=== PATIENT | male | born 1975 | race Caucasian/White ===

== ENCOUNTER 2024-07-11 09:59 | Outpatient (AMB) | payer OTHER, SELFPAY ==
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
[2024-07-11 09:59] VITALS: BP 136/88; PULSE 76; RESP 12; O2SAT 98; BMI 21.2
== END 2024-07-11 10:50 | disposition home or self-care (01) ==
LOC: HO.HMCFM 09:59
PROVIDERS: PCP Internal Medicine; Visit Provider Internal Medicine
DX: E89.0 Postprocedural hypothyroidism (principal); I10 Essential (primary) hypertension; B36.0 Pityriasis versicolor

== ENCOUNTER → 2024-07-11 09:59 | Outpatient (BNVA) | payer OTHER, SELFPAY | PROVIDERS: PCP Internal Medicine; Visit Provider Internal Medicine | DX: E89.0 Postprocedural hypothyroidism (principal); I10 Essential (primary) hypertension; B36.0 Pityriasis versicolor; E78.00 Pure hypercholesterolemia, unspecified; J45.909 Unspecified asthma, uncomplicated; Z79.899 Other long term (current) drug therapy | CPT/HCPCS: 96127; 96160; 99212 ==

== ENCOUNTER 2024-07-11 10:58 | Outpatient (REF) | payer OTHER, SELFPAY ==
[2024-07-11 15:16] LABS: MANUAL DIFF FLAG NO
[2024-07-11 15:26] LABS: Basophils Absolute Auto 0.1 X10*3/uL (0.0-0.2); Basophils Percent Auto 1.3 % (0-2); Eosinophils Absolute Auto 0.7 X10*3/uL (0.0-0.4); Eosinophils Percent Auto 10.9 % (0-4); Hematocrit 45.3 % (42.0-52.0); Hemoglobin 15.3 g/dl (14.0-18.0); Imm Gran Abs Auto 0.01 X10*3/uL (0.00-0.03); Imm Gran Pct Auto 0.2 % (0.0-0.4); Lymphocytes Absolute Auto 2.4 X10*3/uL (1.2-4.9); Lymphocytes Percent Auto 37.2 % (20-40); Mean Corpuscular HGB Conc 33.8 g/dl (31.0-36.0); Mean Corpuscular Hemoglobin 30.4 pg (27.0-33.0); Mean Corpuscular Volume 90.1 fL (80.0-98.0); Mean Platelet Volume 10.1 fL (9.4-12.4); Monocytes Absolute Auto 0.5 X10*3/uL (0.1-1.2); Monocytes Percent Auto 7.6 % (2-11); Neutrophils Absolute Auto 2.7 x10*3/uL (2.0-8.3); Neutrophils Percent Auto 42.8 % (45-73); Platelet Count 282 X10*3/uL (160-400); Red Blood Count 5.03 X10*6/uL (4.60-5.80); Red Cell Distribution Width 12.4 % (11.0-16.0); White Blood Count 6.3 X10*3/uL (4.8-10.8)
[2024-07-11 16:13] LABS: Alanine Aminotransferase 21 U/L (0-40); Albumin Level 4.8 g/dL (3.5-5.0); Alkaline Phosphatase 63 U/L (39-117); Anion Gap 14 (12-20); Aspartate Amino Transferase 19 U/L (5-37); Bilirubin Total 0.5 mg/dL (0.0-1.0); Blood Urea Nitrogen 16 mg/dL (9-16); Calcium 10.1 mg/dL (8.4-10.2); Carbon Dioxide 29 mmol/L (22-29); Chloride 105 mmol/L (96-108); Cholesterol 297 mg/dL (<200); Estimated Glomerular Filt Rate > 60; Glucose Random 102 mg/dL (60-115); HDL Cholesterol 38 mg/dL (>40); LDL Cholesterol Calculated 228 mg/dL (<100); Potassium 4.6 mmol/L (3.3-5.1); Sodium 143 mmol/L (135-145); TSH reflex Free T4 1.82 uIU/mL (0.32-4.0); Total Protein 7.7 g/dL (6.5-8.0); Triglycerides 156 mg/dL (<150)
[2024-07-16 19:09] LABS: Testosterone, Free 65.7 pg/mL (35.0-155.0); Testosterone, Total 494 ng/dL (250-1100)
== END 2024-07-11 10:59 | disposition home or self-care (01) ==
LOC: HO.WFDLDS 10:58
PROVIDERS: Visit Provider Internal Medicine
DX: I10 Essential (primary) hypertension (principal); E78.00 Pure hypercholesterolemia, unspecified; E03.9 Hypothyroidism, unspecified
CPT/HCPCS: 36415; 80053; 80061; 84402; 84403; 84443; 85025

== ENCOUNTER 2024-10-26 10:37 | Outpatient (REF) | payer OTHER, SELFPAY ==
[2024-10-31 21:52] LABS: Testosterone, Free 312.5 pg/mL (35.0-155.0); Testosterone, Total 1313 ng/dL (250-1100)
== END 2024-10-26 10:38 | disposition home or self-care (01) ==
LOC: HO.HMGCLDS 10:37
PROVIDERS: PCP Internal Medicine; Visit Provider Internal Medicine
DX: N52.9 Male erectile dysfunction, unspecified (principal); E78.00 Pure hypercholesterolemia, unspecified
CPT/HCPCS: 36415; 84402; 84403

== ENCOUNTER 2024-10-27 09:37 | Outpatient (REF) | payer OTHER, SELFPAY ==
[2024-10-27 13:53] LABS: Cholesterol 268 mg/dL (<200); HDL Cholesterol 34 mg/dL (>40); LDL Cholesterol Calculated 209 mg/dL (<100); Triglycerides 129 mg/dL (<150)
== END 2024-10-27 09:38 | disposition home or self-care (01) ==
LOC: HO.HMGCLDS 09:37
PROVIDERS: PCP Internal Medicine; Visit Provider Internal Medicine
DX: N52.9 Male erectile dysfunction, unspecified (principal); E78.00 Pure hypercholesterolemia, unspecified
CPT/HCPCS: 36415; 80061

== ENCOUNTER 2025-01-24 | Outpatient (REF) | payer OTHER, SELFPAY ==
--- OUTSIDE RECORDS SUMMARY | 2025-04-13 18:10 | XMS_ITS | Encounter Summary ---
Author Organization [facility] Address [address] [place] [address] Care Team Providers Care Plunger Scoop Operator Name Role Phone [facility], Pcp Primary Care Provider Traci Rhoades MD Primary Care Provider Unavail Cody Kirk Primary Care Provider [phone] [facility], [facility] Primary Care Provider Janet mark Reason for Visit * Reason Onset Date Comments Shoulder Pain 10/07/2016 Encounter Details Date Type Department Care Team Description 10/07/2016 Telephone Adult Medicine [address] [address] Traci Callejas MD Shoulder Pain Social History Tobacco Use Types Packs/Day Years Used Date Smoking Tobacco: Every Day Cigarettes 0.5 4 Alcohol Use Standard Drinks/Week Comments No 0 (1 standard drink = 0.6 oz pur e alcohol) Sex Assigned at Date Recorded Not on file documented as of this encounter Miscellaneous Notes * Telephone Encounter - Padmini Cheema R.N. - 10/07/2016 8:52 AM EST Pt was seen yesterday for knee, shoulder and back pain. He had recently been taking prednisone and was seen by [facility]. Is due for surgery on his knee with knee. States he is miserable with his shoulder locked up and his knee locked up and he is unable to accomplish ADL's or work because he is not able to use his arms or legs. No change in C/S but has noROM in shoulders or knee, asking for a referral to [facility] for his shoulder . * Telephone Encounter - Araceli Carpenter - 10/07/2016 8:38 AM EST Symptoms patient is presenting: PATIENT WAS SEEN YESTERDAY BY DR SEVERINO FOR KNEE PAIN AND TODAY HIS BOTH SHOULDER ARE LOCK AND KNEE IS LOCK. If pain or injury related was it due to an accident at work or from a motor vehicle accident? NO If yes, gather 3rd libertarian insurance information Date of accident/Injury: How long has patient had these symptoms?: TODAY PCP: Pcp Community Payor: [email or web address] / Plan: [facility] $10/$18 / Product Type: HMO [id number] documented in this encounter Plan of Treatment Not on file documented as of this encounter Visit Diagnoses Not on filedocumented in this encounter Care Teams Plunger Scoop Operator Relationship Specialty Start Date End Date Community, Pcp PCP - General Internal Medicine 09/02/16 12/03/16 Traci Callejas MD PCP - General Internal Medicine 12/04/16 04/30/22 Cody Valenzuela [address] [place] [id number] PCP - General Internal Medicine 05/01/22 03/16/24 Community, Pcp PCP - General Internal Medicine 03/17/24 documented as of this encounter
== END 2025-01-24 00:01 | disposition home or self-care (01) ==
LOC: CF
PROVIDERS: Visit Provider Internal Medicine
DX: Z00.00 Encounter for general adult medical examination without abnormal findings (principal); I10 Essential (primary) hypertension; E78.00 Pure hypercholesterolemia, unspecified; E89.0 Postprocedural hypothyroidism; Z79.899 Other long term (current) drug therapy
CPT/HCPCS: 99396

== ENCOUNTER 2025-01-24 11:24 | Outpatient (AMB) | payer OTHER, SELFPAY ==
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
[2025-01-24 11:43] VITALS: BP 130/100; PULSE 84; RESP 14; O2SAT 96; BMI 29.0
[2025-01-24 11:50] VITALS: BP 124/90
--- OUTSIDE RECORDS SUMMARY | 2025-01-24 13:57 | XMS_ITS | Clinical Summary ---
Author Organization [employer] Address [address] [place] [address] [address] [place] [address] Care Team Providers Care Bobbin Collector Name Role Phone Unavailable Primary Care Provider Unavailabl e Allergies Active Allergy Reactions Criticality Noted Date Comments Shellfish-Derived Products Swelling 8 Medications No known medications Social History Tobacco Use Types Packs/Day Years Used Date Smoking Tobacco: Former Cigarettes Smokeless Tobacco: Former Tobacco Cessation:Counseling Given: Not Answered Alcohol Use Standard Drinks/Week Comments Not Currently 0 (1 standard drink = 0.6 oz pur e alcohol) Sex and Gender Information Value Date Recorded Sex Assigned at Male 08/18/2022 10:22 AM EDT Legal Sex Male 10:22 AM EDT Gender Identity Male 01/01/2023 1:28 PM EDT Sexual Orientation Choose not to disclose 2022 1:28 PM EDT Plan of Treatment Health Maintenance Due Date Last Done Comments CT Colonography 1977 Colonoscopy 1977 Colorectal Cancer Screening 1977 Depression Screening 1977 FIT DNA/Cologuard 1977 FIT 1977 FOBT 1977 HIV Screening 1977 Lipid Panel 1977 SDOH Screening 1977 Sigmoidoscopy 1977 Alcohol/Substance Use Screening 1989 Family Planning (PISQ) 01/31/1992 Hepatitis C Screening 1995 Hepatitis B Vaccines (1 of 3 - 19+ 3-dose series) 01/31/1996 DTaP/Tdap/Td Vaccines (1 - Tdap) 03/01/2013 02/28/2013 Pneumococcal Vaccine: Pediatrics (0 to 5 Years) and At-Risk Patients (6 to 49) Years) (2 of 2 - PCV) 05/19/2014 05/19/2013 Dental X-Ray: Full Mouth 09/21/2016 09/20/2013, 1104/2012 Dental Prophylaxis 03/08/2018 09/07/2017, 0 03/03/2017, 02/07/2015, Additional history exists Dental Oral Exam 08/26/2019 02/22/2019, , 03/03/2017, Additional history exists Tobacco Screening 05/08/2024 05/08/2023 Dental X-Ray: Bitewings 05/09/2024 05/08/20 23, 02/22/2019, 03/03/2017, Additional history exists COVID-19 Vaccine ( - 2023- season) 2024 Influenza Vaccine (#1) 2024 Zoster Vaccines (1 of 2) 2027 RSV Patients and Patients Aged 60 years or older (1 - 1-dose 75+ series) 01/31/2052 HIB Vaccines Aged Out No longer eligi ble based on patient's age to complete this topic HPV Vaccines Aged Out No longer eligi ble based on patient's age to complete this topic Hepatitis A Vaccines Aged Out No long er eligible based on patient's age to complete this topic IPV Vaccines Aged Out No longer eligi ble based on patient's age to complete this topic Meningococcal Vaccine Aged Out No michelle indy eligible based on patient's age to complete this topic RSV under 20 months Aged Out No longe r eligible based on patient's age to complete this topic Rotavirus Vaccines Aged Out No longer eligible based on patient's age to complete this topic Procedures Procedure Name Priority Date/Time Associated Diagnosis Comments BITEWING - SINGLE RADIOGRAPHIC IMAGE Routine 05/08/2023 11:30 AM EDT Dental abscess PERIODIC ORAL EVALUATION - ESTABLISHED PATIENT Routine 02/22/2019 12:00 AM EDT PROPHYLAXIS - ADULT Routine 09/07/2017 1 2:00 AM EST PANORAMIC RADIOGRAPHIC IMAGE Routine 09/20/2013 12:00 AM EST from Last 3 Months or Most Recently Relevant to Health Maintenance Insurance DENTAL-[facility] MEDICAID STAND ADULT DENTAL - [place] PARTIAL (MEDICAID) [place] STAND ADULT * Guarantor: Jeremy, Joe Account Type Relation to Patient Date of Phone Billing Address Personal/Family Self [address] [place]
--- OUTSIDE RECORDS SUMMARY | 2025-01-24 13:57 | XMS_ITS | Encounter Summary ---
Author Organization [facility] Address [address] [place] [address] Phone Care Team Providers Care Carbon Capture Power Plant Manager Name Role Phone Lore Rolle Primary Care Provider [phone] Encounter Details Date Type Department Care Team (Late st Contact Info) Description 06/02/2022 Procedure Pass [facility], Ct Scan - [address] [address] Social History Tobacco Use Types Packs/Day Years Used Date Smoking Tobacco: Never Assessed Sex and Gender Information Value Date Recorded Sex Assigned at Male 06/02/2022 3:28 PM EDT Gender Identity Male 06/02/2022 3:28 PM EDT Sexual Orientation Not on file documented as of this encounter Plan of Treatment Not on file documented as of this encounter Visit Diagnoses Not on filedocumented in this encounter Care Teams Carbon Capture Power Plant Manager Relationship Specialty Start Date End Date Lore Rolle PA PCP - General 06/02/22 documented as of this encounter Additional Source Comments The information contained in this document represents components of the legal health record. It is not the complete legal health record.[facility]
--- OUTSIDE RECORDS SUMMARY | 2025-01-24 13:57 | XMS_ITS | Clinical Summary ---
Author Organization [facility] Address [address] [place] [address] Phone Care Team Providers Care Electronics Technician Apprentice Name Role Phone Lore Rolle Primary Care Provider [phone]- [phone] Allergies Active Allergy Reactions Criticality Noted Date Comments Shellfish Containing Products Swelling 2007 Medications Medication Sig Dispensed Refills Start Date End Date Status levETIRAcetam (KEPPRA) 500 MG tablet Take 1 tablet (500 mg total) by mouth 2 (two) times a day. 14 tablet 06/03/2022 Active tranexamic acid (LYSTEDA) 650 mg Tab Take 1 tablet (650 mg total) by mouth 3 (three) times a day. 63 tablet 06/03/2022 Active Social History Tobacco Use Types Packs/Day Years Used Date Smoking Tobacco: Never Assessed Education Answer Date Recorded Are you interested in more education? Not on dorita e 02/13/2023 Are you concerned about learning? Not on file 02/13/2023 No 02/13/2023 No 02/13/2023 Digital Access Answer Date Recorded No 03/16/2023 No 03/16/2023 No 03/16/2023 Reliable internet access at home? Not on file 03/16/2023 Device with a working camera? Not on file Sex and Gender Information Value Date Recorded Sex Assigned at Male 06/02/2022 3:28 PM EDT Gender Identity Male 06/02/2022 3:28 PM EDT Sexual Orientation Not on file Last Filed Vital Signs Vital Sign Reading Time Taken Comments Blood Pressure 131/96 06/03/2022 1:30 AM EDT Pulse 85 06/03/2022 1:30 AM EDT Temperature 36.6 ??C (97.9 ??F) 06/03/2022 1:30 AM ED T Respiratory Rate 18 06/02/2022 3:27 PM EDT Oxygen Saturation 99% 06/03/2022 1:30 AM EDT Inhaled Oxygen Concentration - - Weight - - Height - - Body Mass Index - - Plan of Treatment Not on file Medical Devices Not on file Care Teams Electronics Technician Apprentice Relationship Specialty Start Date End Date Lore Rolle PA PCP - General 06/02/22 Additional Source Comments The information contained in this document represents components of the legal health record. It is not the complete legal health record.[facility]
--- OUTSIDE RECORDS SUMMARY | 2025-01-24 13:57 | XMS_ITS | Data Portability ---
Author Organization [facility], [facility] Address [address] [place] [address] Assessment No assessment recorded. Plan of Treatment Reminders Order Date Submit Date Provider Last Modified By Organization Details Last Modified Time Details Appointments None recorded. Lab None recorded. Referral None recorded. Procedures None recorded. Surgeries None recorded. Imaging XR, elbow, 3 or more view - room 112 new pt 2023 024 [email or web address] [facility], [address] [employer], [address], [place], [address], 4 11:16:43 Medication Orders meloxicam 15 mg tablet 2023 024 [email or web address] [id number], [address] [place], [address], 4 14:04:33 Patient TargetsNo targets recorded. Patient InstructionsNo instructions recorded. Reason for Referral None Reported. Procedures Surgical History Date Name Laterality Status Provider Name and Address Organization Details Recorded Time 01/27/20 24 Lateral Epicondylitis Celestone 1cc Injection, L/R completed Marito Garcia PA-C [address] [employer] [employer] [address], [place], [address], [facility] 01/27/2024 13:37:17 Imaging Results None recorded. Procedure Notes None recorded. Medical Equipment None Reported. Allergies Allergen ID Allergen Name Allergen Category Reaction Reaction Severity Criticality Documentation Date Start Date Code Code System Note Provider Name and Address Organization Details Recorded Time 505150 shellfish derived food,medi cation Not available Not available Not available 01/27/2024 [id number] UNK CHRISTINA scruggs [place] - [facility] 13:07:48 Medications Name Sig Start Date Stop Date Status Note LastModified by Organization Details LastModified Time losartan 50 mg tablet TAKE 1 TABLET BY MOUTH EVERY DAY active Not Available Not Available No t Available amoxicillin 500 mg capsule TAKE 1 CAP BY MOUTH EVERY 6 HOURS UNTIL FINISHED 01/26 completed Not Available Not Available Not Available levothyroxi ne 175 mcg tablet TAKE 1 TABLET BY MOUTH EVERY DAY active Not Available Not Available No t Available albuterol sulfate 2.5 mg/3 mL (0.083 %) solution for nebulizatio n INHALE 2.5 MG (3 ML) INHALED EVERY 4 TO 6 HOURS NEEDED FOR SHORTNESS OF BREATH OR WHEEZING active Not Available Not Available No t Available ibuprofen 800 mg tablet TAKE 1 TABLET BY MOUTH EVERY 8 HOURS NEEDED FOR PAIN 01/26 completed Not Available Not Available Not Available fluconazole 150 mg tablet TAKE 1 TABLET BY MOUTH EVERY DAY active Not Available Not Available No t Available meloxicam 15 mg tablet Take 1 tablet every day by oral route after meal(s). active Not Available Not Available No t Available prednisone 20 mg tablet TAKE 2 TABS BY MOUTH DAILY FOR 3 DAYS active Not Available Not Available No t Available simvastatin 10 mg tablet TAKE 1 TABLET BY MOUTH EVERY EVENING active Not Available Not Available No t Available amitriptyli ne 50 mg tablet TAKE 1 TABLET BY MOUTH EVERYDAY AT BEDTIME active Not Available Not Available No t Available levothyroxi ne 150 mcg tablet TAKE 1 TABLET BY MOUTH EVERY DAY 01/26 completed Not Available Not Available Not Available diclofenac sodium 50 mg tablet,yomaira yed release TAKE 1 TABLET BY MOUTH 3 TIMES A DAY 01/26 completed Not Available Not Available Not Available fluticasone propionate 110 mcg/actuati on HFA aerosol inhaler INHALE 1 PUFF BY MOUTH TWICE A DAY 01/26 completed Not Available Not Available Not Available amoxicillin 500 mg-maude hendrickson clavulanate 125 mg tablet TAKE 1 TABLET BY MOUTH THREE TIMES A DAY 01/26 completed Not Available Not Available Not Available Ventolin HFA 90 mcg/actuati on aerosol inhaler INHALE 2 PUFF BY MOUTH EVERY 4 HOURS NEEDED FOR SHORTNESS OF BREATH OR WHEEZING active Not Available Not Available No t Available oxycodone 5 mg tablet TAKE 1 TABLET BY MOUTH EVERY 4 HOURS NEEDED FOR PAIN active Not Available Not Available No t Available doxycycline hyclate 100 mg tablet,yomaira yed release TAKE 1 TABLET BY MOUTH TWICE A DAY FOR 14 DAYS 01/26 completed Not Available Not Available Not Available calcium 315 mg (as citrate)-vi tamin D3 6.25 mcg (250 unit) tablet TAKE 2 TABS BY MOUTH THREE TIMES DAILY 01/26 completed Not Available Not Available Not Available ProAir RespiClick 90 mcg/actuati on breath activated INHALE 2 PUFFS EVERY 4 HOURS NEEDED FOR SHORTNESS OF BREATH OR FOR WHEEZE active Not Available Not Available No t Available Qvar RediHaler 80 mcg/actuati on HFA breath activated aerosol INHALE 1 PUFF BY MOUTH TWICE A DAY active Not Available Not Available No t Available Vitals Date Recorded Body height Body mass index (BMI) Body weight Provider Name and Address Organization Details Last Updated DateTime 01/27/2024 210.82 cm 21.9 kg/m2 01388.36 g CHRISTINA NOGUEIRA [place] - [facility] 01/27/2024 13:07:42 Social History None recorded. Functional Status None recorded. Mental Status None recorded. Family History Nothing Reported. Medical History No medical history recorded. Past Encounters Encounter ID Performer Location Encounter Start Date Encounter Closed Date Diagnosis/Indication Diagnosis SNOMED-CT Code Diagnosis ICD10 Code Diagnosis Note [id number] [facility] [address] [place] [address] 01/27/2024 12:53:10 02/17/2024 11:16:43 Pain of right elbow joint 6938012302 1426156 M25.521 Lateral epicondylitis 20 8002122 M77.11 Health Concerns Section Related Observation LastModified by Organization Detai ls LastModified Time None Recorded Concern Status LastModified by Organization Details LastModified Time None Recorded Advance Directives Directive None Recorded Payers Encounter Date Sequence Insurance Name Policy Number Policy Son Covered Member ID Son Member ID Guarantor Name 01/27/[address] [place] [address] HEALTHY COUNT INCLUDES THE [facility] (MEDICAID HMO) [id number] Joe Luna [id number] Joe Luna Notes Date Note Type Note Provider Name and Address Organization Details Recorded Time 01/27/2024 text/html I am seeing the patient today under the supervision of dr Mi who was available but who did not see the patient. DX: Right Lateral epicondylitis HPI:46. She will mailing for the consultation. He sustained a fall in October. He slipped and fell onto his right elbow. He developed pain and swelling. He has pain with lifting, pulling and pushing. No bracing. No anti-inflammatories. Past family, medical, social history and review of systems has been reviewed, updated and is located in the patient? s chart. Examination: Alert and oriented ? ? 3 . No acute distress. Nonantalgic gait.Right Elbow reveals no soft tissue swelling. The patient is tender over the lateral epicondyle. Lateral elbow pain with wrist extension, resisted wrist extension and resisted forearm supination. No Tenderness medially or over the olecranon process. Left elbow ROM full. Full pronation/supination. No evidence of varus/valgus instability. No radiocapitellar crepitus. No medial or lateral epicondylar tenderness. No evidence for effusion, no evidence of mechanical symptoms or locking. Intact median, radial and ulnar nerve both motor and sensory function. Negative Tinel at the level of the elbow. X-rays ordered, obtained and reviewed at [facility] Impression/Plan: Findings and situation were discussed with the patient. Treatment options were discussed. The patient would like to proceed with a cortisone injection. Under aseptic technique, 6 mg of Celestone, and 1 cc of 1% plain Lidocaine were injected into the right lateral epicondylar region. The patient tolerated the procedure well. Patient was provided with a handout that instruction on home stretching exercises. The patient was provided with a Velcro wrist splint to minimize the use the forearm extensors. . Perscribed meloxicam 15 mg daily prn. Patient follow-up in 6 weeks for reexamination. The patient has weakness and instability of their extremity which requires stabalization for this semi-rigid/rigid orthosis to improve their funciton. Verbal and written instructions for the use and application of this item were given. Patient was instructed that should the brace result in increased pain, decreased sensation, increased swelling or an overall worsening of their medical condition, to please contact our office immediately.Velcro wrist splint-tennis elbow Marito Garcia PA-C [address], [place], [address], [facility] - [facility] 01/27/2024 13:37:34
== END 2025-01-24 12:25 | disposition home or self-care (01) ==
PROVIDERS: PCP Internal Medicine; Visit Provider Internal Medicine
DX: Z00.00 Encounter for general adult medical examination without abnormal findings (principal); I10 Essential (primary) hypertension; E78.00 Pure hypercholesterolemia, unspecified

== ENCOUNTER 2025-01-31 10:00 | Outpatient (REF) | payer OTHER, SELFPAY ==
--- OUTSIDE RECORDS SUMMARY | 2025-01-31 11:38 | XMS_ITS | Clinical Summary ---
Author Organization [facility] Address [address] [place] [address] Phone Care Team Providers Care Clinical Nurse Educator Name Role Phone Lore Rolle Primary Care Provider [phone]- [phone] Allergies Active Allergy Reactions Criticality Noted Date [...] Medical Devices Not on file Care Teams Clinical Nurse Educator Relationship Specialty Start Date End Date Lore Rolle PA PCP - General 06/02/22 Additional Source Comments The information contained in this document represents components of the legal health record. It is not the complete legal health record.[facility]
--- OUTSIDE RECORDS SUMMARY | 2025-01-31 11:38 | XMS_ITS | Clinical Summary ---
Author Organization [employer] Address [address] [place] [address] [address] [place] [address] Care Team Providers Care Account Manager Relief Name Role Phone Unavailable Primary Care Provider [...] Most Recently Relevant to Health Maintenance Insurance [facility] MEDICAID STAND ADULT DENTAL - HSN PARTIAL (MEDICAID) [place]ICAID STAND ADULT * Guarantor: Jeremy, Joe Account Type Relation to Patient Date of Phone Billing Address Personal/Family Self [address] [place]
--- OUTSIDE RECORDS SUMMARY | 2025-01-31 11:38 | XMS_ITS | Encounter Summary ---
Author Organization [facility] Address [address] [place] [address] Phone Care Team Providers Care Pattern Finisher Name Role Phone Lore Rolle Primary Care Provider [phone] Encounter Details Date Type Department Care Team (Late st Contact Info) Description 06/02/2022 Procedure Pass [facility], Ct Scan - [address] [address] Social History Tobacco Use Types Packs/Day Years [...] on filedocumented in this encounter Care Teams Pattern Finisher Relationship Specialty Start Date End Date Lore Rolle PA PCP - General 06/02/22 documented as of this encounter Additional Source Comments The information contained in this document represents components of the legal health record. It is not the complete legal health record.[facility]
[2025-01-31 13:27] LABS: MANUAL DIFF FLAG NO
[2025-01-31 13:42] LABS: Basophils Absolute Auto 0.1 X10*3/uL (0.0-0.2); Basophils Percent Auto 0.8 % (0-2); Eosinophils Absolute Auto 0.8 X10*3/uL (0.0-0.4); Eosinophils Percent Auto 11.5 % (0-4); Hematocrit 46.7 % (42.0-52.0); Hemoglobin 15.9 g/dl (14.0-18.0); Imm Gran Abs Auto 0.02 X10*3/uL (0.00-0.03); Imm Gran Pct Auto 0.3 % (0.0-0.4); Lymphocytes Absolute Auto 2.3 X10*3/uL (1.2-4.9); Lymphocytes Percent Auto 32.6 % (20-40); Mean Corpuscular Hemoglobin 30.1 pg (27.0-33.0); Mean Corpuscular Volume 88.3 fL (80.0-98.0); Mean Platelet Volume 10.1 fL (9.4-12.4); Monocytes Absolute Auto 0.6 X10*3/uL (0.1-1.2); Monocytes Percent Auto 8.4 % (2-11); Neutrophils Absolute Auto 3.3 x10*3/uL (2.0-8.3); Neutrophils Percent Auto 46.4 % (45-73); Platelet Count 280 X10*3/uL (160-400); Red Blood Count 5.29 X10*6/uL (4.60-5.80); Red Cell Distribution Width 12.9 % (11.0-16.0); White Blood Count 7.1 X10*3/uL (4.8-10.8)
[2025-01-31 14:12] LABS: Alanine Aminotransferase 31 U/L (0-40); Albumin Level 4.5 g/dL (3.5-5.0); Anion Gap 13 (12-20); Aspartate Amino Transferase 56 U/L (5-37); Bilirubin Total 0.5 mg/dL (0.0-1.0); Blood Urea Nitrogen 18 mg/dL (9-16); Calcium 9.6 mg/dL (8.4-10.2); Carbon Dioxide 25 mmol/L (22-29); Chloride 106 mmol/L (96-108); Cholesterol 245 mg/dL (<200); Estimated Glomerular Filt Rate > 60; Glucose Random 80 mg/dL (60-115); HDL Cholesterol 37 mg/dL (>40); LDL Cholesterol Calculated 167 mg/dL (<100); Potassium 4.6 mmol/L (3.3-5.1); Sodium 139 mmol/L (135-145); Total Protein 7.4 g/dL (6.5-8.0); Triglycerides 207 mg/dL (<150)
[2025-01-31 14:25] LABS: TSH reflex Free T4 0.99 uIU/mL (0.32-4.0)
[2025-01-31 17:31] LABS: Alkaline Phosphatase 52 U/L (39-117)
[2025-02-01 04:58] LABS: Lyme Abs Screen <0.90 index
[2025-02-05 12:24] LABS: Testosterone, Free 201 pg/mL (35.0-155.0); Testosterone, Total 1126 ng/dL (250-1100)
== END 2025-01-31 10:01 | disposition home or self-care (01) ==
LOC: HO.HMGCLDS 10:00
PROVIDERS: PCP Internal Medicine; Visit Provider Internal Medicine
DX: Z00.00 Encounter for general adult medical examination without abnormal findings (principal); I10 Essential (primary) hypertension; E78.00 Pure hypercholesterolemia, unspecified; E89.0 Postprocedural hypothyroidism
CPT/HCPCS: 36415; 80053; 80061; 84402; 84403; 84443; 85025; 86617; 86618

== ENCOUNTER 2025-01-31 11:19 | Outpatient (REF) | payer OTHER, SELFPAY ==
--- OUTSIDE RECORDS SUMMARY | 2025-01-31 14:00 | XMS_ITS | Encounter Summary ---
Author Organization [facility] Address [address] [facility] [address] [facility] [place] [address] Care Team Providers Care Crown Ironer Name Role Phone Benedicto Hoskins MD Primary Care Provider Unavailable [facility], Pcp Primary Care Provider Traci Rhoades MD Primary Care Provider Unavail able Cody Valenzuela Primary Care Provider [facility], Pcp Primary Care Provider Janet mark Encounter Details Date Type Department Care Team Description 08/03/2016 Release of Information Medical Records [address] [place] [address] Abstract, Provider Social History Tobacco Use Types Packs/Day Years Used Date Smoking Tobacco: Every Day Cigarettes 0.5 4 Alcohol Use Standard Drinks/Week Comments No 0 (1 standard drink = 0.6 oz pur e alcohol) Sex Assigned at Date Recorded Not on file documented as of this encounter Plan of Treatment Not on file documented as of this encounter Visit Diagnoses Not on filedocumented in this encounter Care Teams Crown Ironer Relationship Specialty Start Date End Date Benedicto Hoskins MD PCP - General Internal Medicine 08/11/13 [facility], Pcp PCP - General Internal Medicine 09/02/16 12/03/16 Traci Callejas MD PCP - General Internal Medicine 12/04/16 04/30/22 Cody Valenzuela [address] [place] [address] PCP - General Internal Medicine 05/01/22 03/16/24 [facility], Pcp PCP - General Internal Medicine 03/17/24 documented as of this encounter
--- OUTSIDE RECORDS SUMMARY | 2025-01-31 14:00 | XMS_ITS | Encounter Summary ---
Author Organization [facility] Address [address] [place] [address] Care Team Providers Care Uke Operator Name Role Phone Traci Callejas MD Primary Care Provider Unavail able Cody Valenzuela Primary Care Provider [phone] Counts Include [address] [facility], Pcp Primary Care Provider Unavailabl e Reason for Visit * Reason Onset Date Comments [employer] Communications Sergeant Feedback 06/22/2018 [facility] Encounter Details Date Type Department Care Team Description 06/22/2018 Telephone Adult Medicine [address] [address] Traci Callejas MD [employer] Sergeant Feedback ([facility] - [facility] ) Social History Tobacco Use Types Packs/Day Years Used Date Smoking Tobacco: Every Day Cigarettes 0.5 4 Smokeless Tobacco: Current Alcohol Use Standard Drinks/Week Comments Yes 0 (1 standard drink = 0.6 oz pur e alcohol) Sex Assigned at Date Recorded Not on file documented as of this encounter Miscellaneous Notes * Telephone Encounter - Isatu Craft - 06/23/2018 10:31 AM EDT images sent to [facility]. * Telephone Encounter - John Horta - 06/22/2018 4:33 PM EDT Please push / upload imaging of knee done on 05/19/18 to pac -[facility] ?? documented in this encounter Plan of Treatment Not on file documented as of this encounter Visit Diagnoses Not on filedocumented in this encounter Care Teams Uke Operator Relationship Specialty Start Date End Date Traci Callejas MD PCP - General Internal Medicine 12/04/16 04/30/22 Cody Valenzuela [address] [place] [address] PCP - General Internal Medicine 05/01/22 03/16/24 Counts Include [address] [facility], [address] [address] PCP - General Internal Medicine 03/17/24 documented as of this encounter
--- OUTSIDE RECORDS SUMMARY | 2025-01-31 14:00 | XMS_ITS | Encounter Summary ---
Author Organization [facility] Address [address] [place] [address] Care Team Providers Care Contact Centre Supervisor Name Role Phone [facility], Pcp Primary Care Provider Traci Rhoades MD Primary Care Provider Unavail Cody Kirk Primary Care Provider [phone] [facility], Pcp Primary Care Provider Janet mark Encounter Details Date Type Department Care Team Description 10/08/2016 Release of Information Medical Records [address] [place] [address] Abstract, Provider Social History Tobacco Use Types [...] on filedocumented in this encounter Care Teams Contact Centre Supervisor Relationship Specialty Start Date End Date [facility], Pcp PCP - General Internal Medicine 09/02/16 12/03/16 Traci Callejas MD PCP - General Internal Medicine 12/04/16 04/30/22 Cody Valenzuela [address] [place], [place] [id number] PCP - General Internal Medicine 05/01/22 03/16/24 [facility], Pcp PCP - General Internal Medicine 03/17/24 documented as of this encounter
--- OUTSIDE RECORDS SUMMARY | 2025-01-31 14:00 | XMS_ITS | Encounter Summary ---
Author Organization [facility] Address [address] [place] [address] Care Team Providers Care Parent Trainer Name Role Phone Traci Callejas MD Primary Care Provider Unavail able Cody Valenzuela Primary Care Provider [phone] [facility], Pcp [facility] Encounter Details Date Type Department Care Team Description 04/30/2022 [place] [address] Traci Callejas MD Social History Tobacco Use Types Packs/Day Years [...] on filedocumented in this encounter Care Teams Parent Trainer Relationship Specialty Start Date End Date Traci Callejas MD PCP - General Internal Medicine 12/04/16 04/30/22 Cody Valenzuela [address] [place] [address] [id number] PCP - General Internal Medicine 05/01/22 03/16/24 [facility], Pcp [address] [place] [address] PCP - General Internal Medicine 03/17/24 documented as of this encounter
--- OUTSIDE RECORDS SUMMARY | 2025-01-31 14:00 | XMS_ITS | Clinical Summary ---
Author Organization [facility] Address [address] [place] [address] Phone Care Team Providers Care Clinical Project Coordinator Name Role Phone Lore Rolle Primary Care Provider [phone] Allergies Active Allergy Reactions Criticality Noted Date [...] Devices Not on file Care Teams Clinical Project Coordinator Relationship Specialty Start Date End Date Lore Rolle PA PCP - General 06/02/22 Additional Source Comments The information contained in this document represents components of the legal health record. It is not the complete legal health record.[facility]
--- OUTSIDE RECORDS SUMMARY | 2025-01-31 14:00 | XMS_ITS | Encounter Summary ---
Author Organization [facility] Address [address] [place] [address] Phone Care Team Providers Care Mens Locker Room Attendant Name Role Phone Lore Rolle Primary Care Provider [phone] Encounter Details Date Type Department Care Team (Late st Contact Info) Description 06/02/2022 Procedure Pass [facility], Ct Scan - [address] [address] Social History Tobacco Use Types Packs/Day Years [...] on filedocumented in this encounter Care Teams Mens Locker Room Attendant Relationship Specialty Start Date End Date Lore Rolle PA PCP - General 06/02/22 documented as of this encounter Additional Source Comments The information contained in this document represents components of the legal health record. It is not the complete legal health record.[facility]
--- OUTSIDE RECORDS SUMMARY | 2025-01-31 14:00 | XMS_ITS | Encounter Summary ---
Author Organization [facility] Address [address] [place] [address] Care Team Providers Care Telecom Assistant Name Role Phone Traci Callejas MD Primary Care Provider Unavail Cody Kirk Primary Care Provider [phone] [facility] [place] [facility], Pcp Primary Care Provider [facility] Reason for Visit * Reason Comments E-prescribe Rx Request Encounter Details Date Type Department Care Team Description 07/12/2018 Refill Adult Medicine [address] [address] Traci Callejas MD E-prescribe Rx Request Social History Tobacco Use Types Packs/Day Years Used Date Smoking Tobacco: Every Day Cigarettes 0.5 4 Smokeless Tobacco: Current Alcohol Use Standard Drinks/Week Comments Yes 0 (1 standard drink = 0.6 oz pur e alcohol) Sex Assigned at Date Recorded Not on file documented as of this encounter Miscellaneous Notes * Telephone Encounter - Anca Dorethakecia - 07/13/2018 8:37 AM EDT Patient would like script to be: E-PRESCRIBED/FAXED TO PHARMACY WHEN WAS THE PATIENT'S LAST APPOINTMENT IN ADULT MEDICINE? 05/19/18 WHEN WAS THE LAST TIME THE PATIENT SAW THEIR PCP? Same as above Does patient have an upcoming appointment? Yes 11/25/18 (THE MEDICATION REQUESTED IS ON THE MED LIST ABOVE) All of the medications requested were on the CURRENT MEDS list Did you check the Pharmacy information above?: YES Patient wants: 30 -day supply Is this a mail order prescription request ? NO If the refill is from a FAXED refill request what is the RX # listed on the fax? N/A Patients current insurance carrier is: No billing information found for this encounter. documented in this encounter Plan of Treatment Not on file documented as of this encounter Visit Diagnoses Not on filedocumented in this encounter Care Teams Telecom Assistant Relationship Specialty Start Date End Date Traci Callejas MD PCP - General Internal Medicine 12/04/16 04/30/22 Cody Valenzuela [address] [place] [address] PCP - General Internal Medicine 05/01/22 03/16/24 [facility] [address] [place] [address] PCP - General Internal Medicine 03/17/24 documented as of this encounter
--- OUTSIDE RECORDS SUMMARY | 2025-01-31 14:00 | XMS_ITS | Clinical Summary ---
Author Organization [employer] Address [address] [place] [address] [address] [place] [address] Care Team Providers Care Blood Bank Technologist Name Role Phone Unavailable Primary Care Provider [...] Most Recently Relevant to Health Maintenance Insurance [facility] MEDICAID STAND ADULT DENTAL - HSN PARTIAL (MEDICAID) [place] STAND ADULT * Guarantor: Jeremy, Joe Account Type Relation to Patient Date of Phone Billing Address Personal/Family Self [address] [place]
--- OUTSIDE RECORDS SUMMARY | 2025-01-31 14:00 | XMS_ITS | Encounter Summary ---
Author Organization [facility] Address [address] [place] [address] Care Team Providers Care Insurance Adviser Name Role Phone [facility], Pcp Primary Care Provider Traci Rhoades MD Primary Care Provider Cody Powell Primary Care Provider [phone] [facility] Primary Care Provider Janet mark Reason for Visit * Reason Onset Date Comments REFERRAL 10/07/2016 Encounter Details Date Type Department Care Team Description 10/07/2016 Telephone Physiatry - [address] [address] Neel Islas PA-C REFERRAL Social History Tobacco Use Types Packs/Day Years Used Date Smoking Tobacco: Every Day Cigarettes 0.5 4 Alcohol Use Standard Drinks/Week Comments No 0 (1 standard drink = 0.6 oz pur e alcohol) Sex Assigned at Date Recorded Not on file documented as of this encounter Miscellaneous Notes * Telephone Encounter - Bimal Zayas - 10/07/2016 10:34 AM EST Patient was referred to Physiatry for shoulder pain Spoke to patient and he declined appointment. Patient stated the appointment was too far away. Patient will not be put back on referrals report. Patient would like to be referred externally. Please place appropriate referral. Thank You documented in this encounter Plan of Treatment Not on file documented as of this encounter Visit Diagnoses Not on filedocumented in this encounter Care Teams Insurance Adviser Relationship Specialty Start Date End Date Community, Pcp PCP - General Internal Medicine 09/02/16 12/03/16 Traci Callejas MD PCP - General Internal Medicine 12/04/16 04/30/22 Cody Valenzuela [address] [place] [address] PCP - General Internal Medicine 05/01/22 03/16/24 Community, Pcp PCP - General Internal Medicine 03/17/24 documented as of this encounter
[2025-01-31 14:43] LABS: Amphetamine Screen Urine Not Detected (Not Detect); Barbiturates, Urine Not Detected (Not Detect); Benzodiazepines Screen Urine Not Detected (Not Detect); Buprenorphine Scr Not Detected (Not Detect); Cannabinoid Screen Urine Not Detected (Not Detect); Cocaine Screen Urine Not Detected (Not Detect); Fentanyl, urine Not Detected (Not Detect); Methadone Screen, Urine Not Detected (Not Detect); Opiate Screen Urine Not Detected (Not Detect); Oxycodone Screen Urine Not Detected (Not Detect); Phencyclidine Screen Urine Not Detected (Not Detect)
== END 2025-01-31 11:20 | disposition home or self-care (01) ==
LOC: HO.WFDLDS 11:19
PROVIDERS: Visit Provider Internal Medicine
DX: Z02.83 Encounter for blood-alcohol and blood-drug test (principal)
CPT/HCPCS: 80307

== ENCOUNTER 2025-08-01 11:01 | Outpatient (AMB) | payer MEDICARE, MEDICAID, SELFPAY ==
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
[2025-08-01 11:27] VITALS: BP 110/86; PULSE 76; RESP 14; TEMP 36.6; O2SAT 96; BMI 29.9
--- OUTSIDE RECORDS SUMMARY | 2025-08-01 13:19 | XMS_ITS | Encounter Summary ---
Author Organization [facility] Address [address] [place] [address] [place] [phone] Phone Care Team Providers Care Electronic Heat Seal Operator Name Role Phone Lore Rolle Primary Care Provider [phone] Encounter Details Date Type Department Care Team (Late st Contact Info) Description 06/02/2022 Procedure Pass [facility], Ct Scan - [address] [address] Social History Tobacco Use Types Packs/Day Years Used Date Smoking Tobacco: Never Assessed Sex and Gender Information Value Date Recorded Sex Assigned at Male 06/02/2022 3:28 PM EDT Legal Sex Male 9:26 PM EDT Gender Identity Male 06/02/2022 3:28 PM EDT Sexual Orientation Not on file documented as of this encounter Functional Status * Calculated C-SSRS Risk Score (Lifetime/Recent) Answer Date of Assessment Author No Risk Indicated 06/02/2022 3:28 PM EDT Africa Bravo RN * [place] Suicide Severity Rating Scale (Screener/Recent Self-Report) Question Answer Date of Assessment Author 1. Wish to be (Past 1 Month) No 022 3:28 PM EDT Africa Bravo RN 2. Non-Specific Active Suici mick Thoughts (Past 1 Month) No 06/02/2022 3:28 PM EDT Jonn Bravo RN 6. Suicidal Behavior (Lifetime) No 3:28 PM EDT Africa Bravo RN documented as of this encounter Plan of Treatment Not on file documented as of this encounter Visit Diagnoses Not on filedocumented in this encounter Care Teams Electronic Heat Seal Operator Relationship Specialty Start Date End Date Lore Rolle PA [address] [place] [address] PCP - General 06/02/22 documented as of this encounter Additional Source Comments The information contained in this document represents components of the legal health record. It is not the complete legal health record.[facility]
--- OUTSIDE RECORDS SUMMARY | 2025-08-01 13:19 | XMS_ITS | Clinical Summary ---
Author Organization [facility] Address [address] [place] [address] [place] [address] Phone Care Team Providers Care Paperback Machine Operator Name Role Phone Lore Rolle Primary Care Provider [phone] Allergies Active Allergy Reactions Criticality Noted Date Comments Shellfish Containing Products Swelling 2007 Medications levETIRAcetam (KEPPRA) 500 MG tablet Take 1 [...] 85 06/03/2022 1:30 AM EDT Temperature 36.6 C (97.9 F) 06/03/2022 1:30 AM EDT Respiratory Rate 18 06/02/2022 3:27 PM EDT Oxygen Saturation 99% 06/03/2022 1:30 AM EDT Inhaled Oxygen Concentration - - Weight - - Height - - Body Mass Index - - Plan of Treatment Not on file Medical Devices Not on file Insurance [facility] [employer] [facility] [employer] Care Teams Paperback Machine Operator Relationship Specialty Start Date End Date Lore Rolle PA [address] [place] [id number] PCP - General 06/02/22 Additional Source Comments The information contained in this document represents components of the legal health record. It is not the complete legal health record.[facility]
--- OUTSIDE RECORDS SUMMARY | 2025-08-01 13:19 | XMS_ITS | Clinical Summary ---
Author Organization [employer] Address [address] [place] [address] Care Team Providers Care Washroom Attendant Name Role Phone Unavailable Primary Care Provider Unavailabl e Allergies Active Allergy Reactions Criticality Noted Date Comments Shellfish Protein-Containing Drug Products Swelling 11/02/2007 Medications No known medications Social History Tobacco [...] Panel 1977 SDOH Screening 1977 Sigmoidoscopy 1977 Disability Screening 1977 Alcohol/Substance Use Screening 1989 Family Planning (PISQ) 01/31/1992 Hepatitis C Screening 1995 Hepatitis B Vaccines (1 of 3 - 19+ 3-dose series) 01/31/1996 DTaP/Tdap/Td Vaccines (1 - Tdap) 03/01/2013 02/28/2013 Pneumococcal Vaccine: Pediatrics (0 to 5 Years) and At-Risk Patients (6 to 49) Years (2 of 2 - PCV) 05/19/2014 05/19/2013 Dental X-Ray: Full Mouth 09/21/2016 09/20/2013, 04/2012 Dental Prophylaxis 03/08/2018 09/07/2017, 0 03/03/2017, 02/07/2015, Additional history exists Dental Oral Exam 08/26/2019 02/22/2019, , 03/03/2017, Additional history exists Tobacco Screening 05/08/2024 05/08/2023 Dental X-Ray: Bitewings 05/09/2024 05/08/20 23, 02/22/2019, 03/03/2017, Additional history exists COVID-19 Vaccine ( season) 2025 Influenza Vaccine (#1) 2025 Zoster Vaccines (1 of 2) 2027 RSV [...] patient's age to complete this topic Meningococcal B Vaccine Aged Out No l onger eligible based on patient's age to complete [...] Most Recently Relevant to Health Maintenance Insurance [facility] Jose Hess [facility] - HSN PARTIAL (MEDICAID) [facility] * Guarantor: Jeremy, Joe Account Type Relation to Patient Date of Phone Billing Address Personal/Family Self [address] [place]
== END 2025-08-01 11:54 | disposition home or self-care (01) ==
LOC: HO.HMCFM 11:02
PROVIDERS: PCP Internal Medicine; Visit Provider Internal Medicine
DX: I10 Essential (primary) hypertension (principal); E78.00 Pure hypercholesterolemia, unspecified; E89.0 Postprocedural hypothyroidism; N52.9 Male erectile dysfunction, unspecified; J45.41 Moderate persistent asthma with (acute) exacerbation

== ENCOUNTER → 2025-08-01 11:01 | Outpatient (BNVA) | payer MEDICARE, SELFPAY | PROVIDERS: PCP Internal Medicine; Visit Provider Internal Medicine | DX: J45.41 Moderate persistent asthma with (acute) exacerbation (principal); I10 Essential (primary) hypertension; E78.00 Pure hypercholesterolemia, unspecified; E89.0 Postprocedural hypothyroidism; N52.9 Male erectile dysfunction, unspecified; G47.33 Obstructive sleep apnea (adult) (pediatric) | CPT/HCPCS: 96160; 99212 ==

== ENCOUNTER 2025-08-07 09:57 | Outpatient (REF) | payer MEDICARE, SELFPAY ==
[2025-08-07 10:25] LABS: MANUAL DIFF FLAG NO
[2025-08-07 11:01] LABS: Hematocrit 46.2 % (42.0-52.0); Hemoglobin 16.6 g/dl (14.0-18.0); Imm Gran Abs Auto 0.02 X10*3/uL (0.00-0.03); Imm Gran Pct Auto 0.3 % (0.0-0.4); Lymphocytes Absolute Auto 2.3 X10*3/uL (1.2-4.9); Mean Corpuscular HGB Conc 35.9 g/dl (31.0-36.0); Mean Corpuscular Hemoglobin 31.4 pg (27.0-33.0); Mean Corpuscular Volume 87.5 fL (80.0-98.0); NRBC Abs Auto 0.000 X10*3/uL (0.0-0.012); NRBC Pct Auto 0.0 /100WBC (0.0-0.2); Platelet Count 283 X10*3/uL (160-400); Red Blood Count 5.28 X10*6/uL (4.60-5.80); White Blood Count 6.5 X10*3/uL (4.8-10.8)
[2025-08-07 11:29] LABS: Alanine Aminotransferase 28 U/L (0-40); Albumin Level 4.9 g/dL (3.5-5.0); Alkaline Phosphatase 49 U/L (39-117); Anion Gap 12 (12-20); Aspartate Amino Transferase 24 U/L (5-37); Blood Urea Nitrogen 17 mg/dL (9-16); Calcium 9.2 mg/dL (8.4-10.2); Carbon Dioxide 28 mmol/L (22-29); Chloride 104 mmol/L (96-108); Cholesterol 234 mg/dL (<200); Estimated Glomerular Filt Rate > 60; HDL Cholesterol 33 mg/dL (>40); Potassium 4.4 mmol/L (3.3-5.1); Sodium 140 mmol/L (135-145); Total Protein 7.1 g/dL (6.5-8.0); Triglycerides 152 mg/dL (<150)
[2025-08-07 11:32] LABS: Prostate Specific Antigen 2.32 ng/mL (<0.05-4.0)
[2025-08-11 16:43] LABS: Testosterone, Free 119.2 pg/mL (35.0-155.0)
== END 2025-08-07 09:58 | disposition home or self-care (01) ==
LOC: HO.LAB 09:57
PROVIDERS: PCP Internal Medicine; Visit Provider Internal Medicine
DX: I10 Essential (primary) hypertension (principal); E78.00 Pure hypercholesterolemia, unspecified; E89.0 Postprocedural hypothyroidism; N52.9 Male erectile dysfunction, unspecified; Z12.5 Encounter for screening for malignant neoplasm of prostate
CPT/HCPCS: 36415; 80053; 80061; 84153; 84402; 84403; 84443; 85025